=== PATIENT | female | born 1990 | race Caucasian/White ===

== ENCOUNTER 2016-10-13 11:30 | Emergency (ER) | payer OTHER ==
[~2016-10-13] VITALS: Ht 175.3 cm; Wt 86.8 kg
[~2016-10-13 11:30] MED LIST: ACYCLOVIR800 MG PO; AMOXICILLIN875 MG; ATIVAN1 MG PO; AUGMENTIN875 MG PO; CIPRODEX OTIC7.5 ML RIGHT EAR; ENDOCET 5-3251 EACH PO; FLEXERIL10 MG PO; FLONASE16 G1 BOTH NARES; FLUTICASONE PRO16 GM; MIRANA; MIRENA52 MG IY; MOTRIN800 MG PO; NAPROSYN500 MG PO; NATALCARE RX1 TABLET PO; NORCO 5/3251 TABLET PO; ROBAXIN750 MG PO; TYLENOL EXTRA500 MG PO
[2016-10-13 12:30] VITALS: BP 133/85
== END 2016-10-13 13:00 | disposition home or self-care (01) ==
LOC: EME 11:30
DX: J02.0 Streptococcal pharyngitis (principal); Z97.5 Presence of (intrauterine) contraceptive device; F17.200 Nicotine dependence, unspecified, uncomplicated
CPT/HCPCS: 87651 90; 99281; 99284; J0561; J1885

== ENCOUNTER 2017-05-26 07:11 | Emergency (ER) | payer OTHER ==
[~2017-05-26] VITALS: Ht 177.8 cm; Wt 97.3 kg
[2017-05-26] MEDS ORDERED: AMOXICILLIN500 MG PO (12:21)
[2017-05-26 12:42] VITALS: BP 128/65
== END 2017-05-26 12:43 | disposition home or self-care (01) ==
LOC: EME 07:11
DX: J02.0 Streptococcal pharyngitis (principal); R11.2 Nausea with vomiting, unspecified; F17.200 Nicotine dependence, unspecified, uncomplicated
CPT/HCPCS: 87502; 87651 90; 99281; 99284

== ENCOUNTER 2017-10-19 21:17 | Emergency (ER) | payer SELFPAY ==
[~2017-10-19] VITALS: Ht 180.3 cm; Wt 97.6 kg
[~2017-10-19 21:17] MED LIST changes: +AMOXICILLIN500 MG PO
[2017-10-19 22:13] VITALS: BP 139/87
[2017-10-19] MEDS ORDERED: MEDROL DOSEPAK4 MG PO (22:42)
[2017-10-19] MEDS ORDERED: VALTREX1000 MG PO (22:42)
[2017-10-19] MEDS ORDERED: NYSTATIN-TRIAMC15 GM TP (22:43)
== END 2017-10-19 23:07 | disposition home or self-care (01) ==
LOC: EME 21:17
DX: R21 Rash and other nonspecific skin eruption (principal); R20.2 Paresthesia of skin; R53.83 Other fatigue; F17.200 Nicotine dependence, unspecified, uncomplicated
CPT/HCPCS: 99281; 99283; J7512